=== PATIENT | male | born 1985 | race Caucasian/White ===

== ENCOUNTER 2024-06-23 12:24 | Emergency (ER) | payer OTHER ==
[2024-06-23 12:33] VITALS: BP 155/81; PULSE 84; RESP 20; TEMP 97.5; BMI 46.5
[2024-06-23] MEDS ORDERED: KETOROLAC TROMETHAMINE 30 MG/1 ML VIAL ONE (14:23)
[2024-06-23] MEDS ORDERED: diazePAM 5 MG TABLET ONE (14:23)
[2024-06-23] MEDS: KETOROLAC TROMETHAMINE 30 MG/1 ML VIAL IM ONE (14:28)
[2024-06-23] MEDS: diazePAM 5 MG TABLET PO ONE (14:29)
[2024-06-23 15:22] LABS: URINE APPEARANCE CLEAR; URINE BILIRUBIN NEGATIVE (NEGATIVE); URINE COLOR YELLOW; URINE GLUCOSE (UA) NEGATIVE (NEGATIVE); URINE KETONE NEGATIVE (NEGATIVE); URINE LEUK ESTERASE NEGATIVE (NEGATIVE); URINE NITRITE NEGATIVE (NEGATIVE); URINE PROTEIN NEGATIVE (NEGATIVE); URINE UROBILINOGEN 0.2 mg/dL (0.2-1.0)
== END 2024-06-23 15:40 | disposition home or self-care (01) ==
LOC: JER 12:24
PROC: 3E0233Z Introduction of Anti-inflammatory into Muscle, Percutaneous Approach (ICD-10-PCS; principal; 2024-06-23)
DX: M54.50 Low back pain, unspecified (principal)
CPT/HCPCS: 81003; 87086; 99284-25